=== PATIENT | male | born 1975 | race Caucasian/White ===

== ENCOUNTER → 2024-10-06 11:26 | Outpatient (CLI) | payer OTHER, SELFPAY ==
--- NOTE | 2024-10-06 11:32 | DI.RAD.S_ITS ---
PROCEDURE: XR FOOT RT MIN 3V INDICATIONS: RIGHT FOOT PAIN TECHNIQUE: 3 views of the foot were acquired. COMPARISON: None. FINDINGS: Bones: No osseous abnormality. Joints: Moderate degenerative change of the 1st MTP and all interphalangeal joints noted. Soft tissues: Minor calcification Achilles tendon insertion. Mild diffuse soft swelling IMPRESSION: Chronic findings as described Dictated by: Kj Shetty M.D. on 10/07/2024 at 12:02 Approved by: Kj Shetty M.D. on 10/07/2024 at 12:03
== END ==
PROVIDERS: Referring Provider Podiatrist Foot & Ankle Surgery; Visit Provider Podiatrist Foot & Ankle Surgery
DX: M25.571 Pain in right ankle and joints of right foot (principal); M79.89 Other specified soft tissue disorders
CPT/HCPCS: 73630

== ENCOUNTER 2025-05-23 09:40 | Emergency (ER) | payer OTHER, SELFPAY ==
[2025-05-23 09:41] VITALS: BP 184/117; PULSE 94; RESP 14; TEMP 36.6; O2SAT 98; BMI 35.9
[2025-05-23] MEDS: OXYMETAZOLINE NASAL SPRAY 30 ML 2 SPRAYS NASAL (10:03)
[2025-05-23 10:10] VITALS: BP 152/92; PULSE 88; RESP 18; O2SAT 96
--- NOTE | 2025-05-23 10:19 | ED_ITS ---
HPI - Epistaxis General Chief complaint: Nasal Problem Stated complaint: nose bleed wont stop on blood thinners Time Seen by Provider: 05/23/25 09:43 Source: patient Mode of arrival: Ambulatory History of Present Illness HPI Narrative: Patient is a 49-year-old male history of hypertension, pulmonary embolism factor 5 Leiden currently on Eliquis presenting today with epistaxis. He reports that he was at work with suddenly he had a gush of blood from his nose. He did apply pressure for about 30 minutes but he still feels like it is actively bleeding. No other symptoms at this time Related Data Allergies Allergy/AdvReac Type Severity Reaction Status Date / Time No Known Drug Allergies Allergy Verified 05/23/25 09:49 Patient History Social History Smoking Status: Unknown if ever smoked Smoking Status: Unknown if ever smoked Exam Initial Vital Signs Initial Vital Signs: Vital Signs Temperature 97.8 F 05/23/25 09:41 Pulse Rate 94 H 05/23/25 09:41 Respiratory Rate 14 05/23/25 09:41 Blood Pressure 184/117 H 05/23/25 09:41 Pulse Oximetry 98 05/23/25 09:41 Oxygen Delivery Method Room Air 05/23/25 09:41 GENERAL: Well-appearing, well-nourished and in no acute distress. NOSE: Right-sided epistaxis nasal clamp in place no blood seen in pharynx or dripping CARDIOVASCULAR: peripheral pulses in tact, cap refill <2 sec RESPIRATORY: No respiratory distress, speaks in full sentences without difficulty EXTREMITIES: Normal range of motion, no clubbing or edema. Neurovascularly intact NEUROLOGICAL: Cranial nerves II through XII grossly intact. Normal gait and speech. SKIN: Warm, dry, no petechiae, no rashes or lesions. Course Orders Ordered: Discontinued Medications Oxymetazoline HCl (Oxymetazoline Nasal [place] 30 Ml) 2 sprays NASAL NOW ONE Stop: 05/23/25 10:01 Last Admin: 05/23/25 10:03 Dose: 2 sprays Documented By: CECIL Vital Signs Vital signs: Vital Signs - 8 hr 05/23/25 09:41 05/23/25 10:10 05/23/25 10:10 Temperature 97.8 F Pulse Rate 94 H 88 Respiratory Rate 14 18 Blood Pressure 184/117 H 152/92 H 152/92 H Pulse Oximetry 98 96 Oxygen Delivery Method Room Air Room Air 05/23/25 10:30 05/23/25 10:30 05/23/25 11:00 Temperature Pulse Rate 83 86 Respiratory Rate Blood Pressure 138/81 Pulse Oximetry 95 95 Oxygen Delivery Method 05/23/25 11:00 Temperature Pulse Rate Respiratory Rate 17 Blood Pressure 143/98 H Pulse Oximetry Oxygen Delivery Method Room Air MDM - Epistaxis MDM Narrative Medical decision making narrative: Patient 49-year-old male history of factor 5 Leiden on Eliquis presenting today with right-sided epistaxis. A nasal clamp placed initially however he still had some bleeding given Afrin and nasal clamp. Bleeding controlled he was monitored in the ED for an hour or more clamp was taken off, bleeding stopped. Education about epistaxis control. Patient given Afrin and nasal clamp. All questions have been answered Discharge Plan Departure Patient Disposition: Home Clinical Impression: Epistaxis Instructions: DI for Nosebleed Activity Restrictions/Additional Instructions: *You have been diagnosed with nosebleed *What to do: At this time hopefully your nose does not restart waiting. If it does you may use another squared or 2 of Afrin apply clamp he has been also try ice on top of nose. If nose continues to bleed for 60 minutes despite all of these interventions where these interventions are not working then feel free to return to the emergency department *Continue to take medications as directed *Follow up with your primary care provider in 2-3 days or call [phone] *Return to ER if you should have persistent nosebleed or any new, worsening or concerning symptoms Stand Alone Forms: Patient Portal/API
[2025-05-23 10:30] VITALS: BP 138/81; PULSE 83; O2SAT 95
[2025-05-23 11:00] VITALS: BP 143/98; PULSE 86; RESP 17; O2SAT 95
== END 2025-05-23 11:20 | disposition home or self-care (01) ==
PROVIDERS: Emergency Provider Emergency Medicine
DX: R04.0 Epistaxis (principal); Z79.01 Long term (current) use of anticoagulants; D68.51 Activated protein C resistance
CPT/HCPCS: 99282